=== PATIENT | female | born 1980 | race Caucasian/White ===

== ENCOUNTER 2017-06-25 16:16 | Emergency (ER) | payer SELFPAY ==
[~2017-06-25] VITALS: Ht 172.7 cm; Wt 84.1 kg
[~2017-06-25 16:16] MED LIST: BACTRIM DS 8001 TAB PO; BUSPAR 30MG30 MG/TAB; CEPHALEXIN500 M1 PO; CYMBALTA 60MG60 MG PO; GEODON; HALDOL5 MG PO; KLONOPIN PO; LAMICTAL 25MG T25 MG; MIRTAZAPINE7.5 MG; MOTRIN 800800 MG/TAB PO; NO HOME MEDICATIONS; NORCO 325 MG-51 TAB PO; PERCOCET 325 MG1 TA2 PO; ROBAXIN 50500 MG/TAB PO; SEROQUEL400 MG; TRAZODONE100 MG PO; VALIUM 5MG T5 MG/TAB PO; VICODIN 5/5001 UDTAB PO; XANAX 0.5MG0.5 MG PO; ZOFRAN ODT4 MG PO; ZOLOFT
[2017-06-25 16:19] VITALS: BP 130/88; TEMP 98.9
[2017-06-25] MEDS ORDERED: PERCOCET 325 MG1 TA2 PO (17:08)
[2017-06-25] MEDS ORDERED: ULTRAM 50MG TAB50 MG PO (17:08)
[2017-06-25] MEDS ORDERED: INDERAL40 MG PO (17:24)
[2017-06-25] MEDS ORDERED: SEROQUEL 200MG200 MG PO (17:25)
[2017-06-25] MEDS ORDERED: VENLAFAXINE225 MG PO (17:25)
[2017-06-25 18:15] VITALS: PULSE 102
== END 2017-06-25 18:16 | disposition home or self-care (01) ==
LOC: COL.ER 16:16
DX: M25.512 Pain in left shoulder (principal); F41.9 Anxiety disorder, unspecified; F60.3 Borderline personality disorder; F17.210 Nicotine dependence, cigarettes, uncomplicated
CPT/HCPCS: J1170; J1885

== ENCOUNTER 2017-08-21 09:24 | Emergency (ER) | payer SELFPAY ==
[~2017-08-21] VITALS: Ht 172.7 cm; Wt 77.3 kg
[~2017-08-21 09:24] MED LIST changes: +INDERAL40 MG PO; +SEROQUEL 200MG200 MG PO; +ULTRAM 50MG TAB50 MG PO; +VENLAFAXINE225 MG PO
[2017-08-21] MEDS ORDERED: FLEXERIL 1010 MG/TAB PO (10:39)
[2017-08-21 10:58] VITALS: BP 178/68; PULSE 108; TEMP 98.5
== END 2017-08-21 10:48 | disposition home or self-care (01) ==
LOC: COL.ER 09:24
DX: M54.5 Low back pain (principal); J45.909 Unspecified asthma, uncomplicated; F20.9 Schizophrenia, unspecified; F17.210 Nicotine dependence, cigarettes, uncomplicated; F12.10 Cannabis abuse, uncomplicated; Z90.49 Acquired absence of other specified parts of digestive tract; Z90.710 Acquired absence of both cervix and uterus; W18.30XA Fall on same level, unspecified, initial encounter
CPT/HCPCS: J1885; J2360